=== PATIENT | female | born 1985 | race African-American/Black ===

== ENCOUNTER 2024-08-22 16:24 | Outpatient (CLI) | payer BC, SELFPAY ==
[2024-08-22] VITALS (14 sets, daily range): BP systolic 139–166; BP diastolic 82–107; PULSE 77–103; BMI 47.1
[2024-08-22 17:03] LABS: Basophils Percent Auto 0.2 % (0.2-1.2); Eosinophils Absolute Auto 0.1 K/mm3 (0-0.3); Eosinophils Percent Auto 1.6 % (0-4.4); Hematocrit 31.2 % (37.0-47.0); Hemoglobin 10.2 g/dL (12.0-15.0); Immature Granulocyte Absolute 0.02 K/mm3 (0.00-0.031); Immature Granulocyte Percent A 0.3 % (0-0.5); Lymphocytes Absolute Auto 1.52 K/mm3 (0.9-3.2); Lymphocytes Percent Auto 24.7 % (18.3-44.2); Mean Corpuscular HGB Conc 32.7 g/dl (32-36); Mean Corpuscular Hemoglobin 28.5 pg (26-34); Mean Corpuscular Volume 87.2 fl (80-100); Mean Platelet Volume 10.9 fl (7.4-10.4); Monocytes Absolute Auto 0.4 K/mm3 (0.1-0.6); Monocytes Percent Auto 6.5 % (2.6-8.5); Neutrophils Absolute Auto 4.1 K/mm3 (1.3-6.7); Neutrophils Percent Auto 66.7 % (45.5-73.1); Platelet Count Result 191 k/mm3 (150-375); Red Blood Count 3.58 M/mm3 (4.2-5.4); Red Cell Distribution Width 13.9 % (11.5-14.5); White Blood Count 6.2 K/mm3 (4.5-10.0)
--- NOTE | 2024-08-22 17:11 | PC.NURSE ---
Dr. Camargo returned call and informed of this pt's arrival. Informed her the pt's BP's were elevated at her [facility] visit this afternoon and was told to come see us. Pt was late in taking the first part of her Procardia XL dose today; she had 60 mg at 1300 instead of this am. Initial BP severe at 166/96 and repeat was 157/101. Blood work has been sent, but waiting for pt to void. Pt was given water and juice to drink. Denies headache, visual disturbance, epigastric/RUQ pain, but does have pitting edema in lower legs.
[2024-08-22 17:13] LABS: Alanine Aminotransferase 10 U/L (6-35); Albumin Level 3.4 g/dL (3.5-5.1); Alkaline Phosphatase 71 U/L (38-126); Anion Gap 7 mmol/L (4-12); Aspartate Amino Transferase 14 U/L (14-36); Bilirubin,Total 0.4 mg/dL (0.2-1.3); Blood Urea Nitrogen 8 mg/dL (7-17); Calcium 9.3 mg/dL (8.4-10.2); Carbon Dioxide 20 mmol/L (22-30); Chloride 107 mmol/L (98-107); Estimated Glomerular Filt Rate > 60; Glucose 84 mg/dL (65-110); Potassium 3.8 mmol/L (3.4-5.0); Sodium 134 mmol/L (137-145); Uric Acid 6.2 mg/dL (2.5-7.5)
--- NOTE | 2024-08-22 17:21 | PC.NURSE ---
Paged Dr. Camargo due to 2nd severe BP
--- NOTE | 2024-08-22 17:32 | PC.NURSE ---
Repaged Dr. Camargo due to severe BP's
--- NOTE | 2024-08-22 17:33 | PC.NURSE ---
Dr. Camargo returned page and informed of severe BP's. Order received to start severe hypertension protocol using PO Procardia. Informed of CBC and CMP results. Pt still hasn't voided.
[2024-08-22] MEDS: NIFEdipine 10 MG CAPSULE PO (17:40)
[2024-08-22 17:57] LABS: Add Urine Microscopic? YES; Appearance Urine Clear (Clear); Bacteria Urine None Seen /hpf; Bilirubin Urine Negative (Negative); Blood Urine Negative (Negative); Color Urine Yellow (Yellow); Glucose Urine UA Negative (Negative); Ketones Urine Trace mg/dL (Negative); Leukocyte Esterase Ur Negative LEU/UL (Negative); Nitrate Urine Negative (Negative); Non Pathogenic Casts 0-2; Protein Urine Trace mg/dL (Negative); RBC Urine 0-2 /hpf (0-2); Squamous Epithelial Cell Urine Few /hpf (Few); Urobilinogen Urine 0.2 mg/dL (<2.0); WBC Urine 0-5 /hpf (0-3); pH Urine 5.5 (5.0-9.0)
[2024-08-22 18:55] LABS: Total Protein Urine Random 22 mg/dL
--- NOTE | 2024-08-22 19:00 | PC.NURSE ---
RN called MD with update. MD made aware of latest blood pressures as well as results of UA. Orders received to administer pts nightime dose of Procardia now.
[2024-08-22] MEDS: NIFEdipine 30 MG TAB.ER.24 PO (19:08)
== END 2024-08-22 20:20 | disposition home or self-care (01) ==
LOC: ANHOBOP 16:32 → ANHOBPP 16:35
PROVIDERS: PCP Obstetrics & Gynecology; Visit Provider Obstetrics & Gynecology
DX: O13.9 Gestational [pregnancy-induced] hypertension without significant proteinuria, unspecified trimester (principal); Z3A.00 Weeks of gestation of pregnancy not specified
CPT/HCPCS: 36415; 59025; 80053; 81001; 82570; 84156; 84550; 85025; 99199; A9270

== ENCOUNTER 2024-08-26 16:48 | Outpatient (CLI) | payer BC, SELFPAY ==
[2024-08-26 17:16] VITALS: BP 159/108; PULSE 96
[2024-08-26 17:31] VITALS: BP 158/93; PULSE 97
--- NOTE | 2024-08-26 17:32 | PC.NURSE ---
Dr. Lott updated on NST and vital signs, orders received to send labs and continue monitoring blood pressures.
[2024-08-26 17:35] VITALS: BP 159/108; PULSE 96
[2024-08-26 17:40] LABS: Basophils Percent Auto 0.2 % (0.2-1.2); Eosinophils Absolute Auto 0.1 K/mm3 (0-0.3); Eosinophils Percent Auto 1.4 % (0-4.4); Hematocrit 36.1 % (37.0-47.0); Hemoglobin 11.4 g/dL (12.0-15.0); Immature Granulocyte Absolute 0.02 K/mm3 (0.00-0.031); Immature Granulocyte Percent A 0.3 % (0-0.5); Lymphocytes Absolute Auto 1.57 K/mm3 (0.9-3.2); Lymphocytes Percent Auto 23.9 % (18.3-44.2); Mean Corpuscular HGB Conc 31.6 g/dl (32-36); Mean Corpuscular Hemoglobin 27.5 pg (26-34); Mean Corpuscular Volume 87.2 fl (80-100); Mean Platelet Volume 11.4 fl (7.4-10.4); Monocytes Absolute Auto 0.3 K/mm3 (0.1-0.6); Monocytes Percent Auto 4.3 % (2.6-8.5); Neutrophils Absolute Auto 4.6 K/mm3 (1.3-6.7); Neutrophils Percent Auto 69.9 % (45.5-73.1); Platelet Count Result 218 k/mm3 (150-375); Red Blood Count 4.14 M/mm3 (4.2-5.4); White Blood Count 6.6 K/mm3 (4.5-10.0)
[2024-08-26 17:46] VITALS: BP 146/88; PULSE 93
[2024-08-26 17:51] LABS: Alanine Aminotransferase 11 U/L (6-35); Albumin Level 3.7 g/dL (3.5-5.1); Alkaline Phosphatase 81 U/L (38-126); Anion Gap 9 mmol/L (4-12); Aspartate Amino Transferase 14 U/L (14-36); Bilirubin,Total 0.6 mg/dL (0.2-1.3); Blood Urea Nitrogen 6 mg/dL (7-17); Calcium 9.1 mg/dL (8.4-10.2); Carbon Dioxide 19 mmol/L (22-30); Chloride 104 mmol/L (98-107); Estimated Glomerular Filt Rate > 60; Glucose 81 mg/dL (65-110); Potassium 3.7 mmol/L (3.4-5.0); Sodium 132 mmol/L (137-145); Uric Acid 6.2 mg/dL (2.5-7.5)
[2024-08-26 18:01] VITALS: BP 146/84; PULSE 95
[2024-08-26 18:01] LABS: Total Protein Urine Random 13 mg/dL; Ur Ttl Prot Creatinine Ratio 0.06 mg/mg (0-0.20)
[2024-08-26 18:06] LABS: Add Urine Microscopic? YES; Appearance Urine Clear (Clear); Bacteria Urine None Seen /hpf; Bilirubin Urine Negative (Negative); Blood Urine Negative (Negative); Color Urine Yellow (Yellow); Glucose Urine UA Negative (Negative); Ketones Urine 3+ mg/dL (Negative); Leukocyte Esterase Ur Negative LEU/UL (Negative); Nitrate Urine Negative (Negative); Non Pathogenic Casts 0-2; Protein Urine Trace mg/dL (Negative); RBC Urine 0-2 /hpf (0-2); Specific Grav Ur 1.018 (1.001-1.035); Squamous Epithelial Cell Urine Occasional /hpf (Few); Urobilinogen Urine 0.2 mg/dL (<2.0); WBC Urine 0-5 /hpf (0-3); pH Urine 5.5 (5.0-9.0)
--- NOTE | 2024-08-26 18:12 | PC.NURSE ---
Dr. Lott updated on lab results and vital signs, okay to discharge
== END 2024-08-26 18:15 | disposition home or self-care (01) ==
LOC: ANHOBOP 16:52 → ANHOBPP 16:54
PROVIDERS: PCP Obstetrics & Gynecology; Visit Provider Obstetrics & Gynecology
DX: O13.9 Gestational [pregnancy-induced] hypertension without significant proteinuria, unspecified trimester (principal); Z3A.00 Weeks of gestation of pregnancy not specified
CPT/HCPCS: 36415; 80053; 81001; 82570; 84156; 84550; 85025; 99199

== ENCOUNTER 2024-08-29 15:45 | Outpatient (RCR) | payer BC, SELFPAY ==
[2024-08-13 12:04] VITALS: BP 139/90; PULSE 100
--- NOTE | ~2024-08-29 | US_ITS ---
EXAMINATION: US OB limited DATE: 08/13/2024 11:14 INDICATION: Decelerations. Third trimester. TECHNIQUE: Real-time ultrasound of the pelvis was performed. COMPARISON: None. FINDINGS: There is a single fetus in vertex presentation. The placenta is fundal. heart rate is 141 beat s per minute (bpm). The amniotic fluid index is 13.9 cm cm, which is normal. IMPRESSION: 1. Single living fetus in vertex presentation. Reviewed, dictated and finalized at location A.
== END 2024-10-02 17:49 | disposition home or self-care (01) ==
LOC: ANHOBOP 15:45
PROVIDERS: PCP Obstetrics & Gynecology; Visit Provider Obstetrics & Gynecology
DX: O36.8330 Maternal care for abnormalities of the fetal heart rate or rhythm, third trimester, not applicable or unspecified (principal)
CPT/HCPCS: 59025; 76815

== ENCOUNTER 2024-08-29 15:45 | Observation (INO) | payer BC, SELFPAY ==
[2024-08-29] VITALS (7 sets, daily range): BP systolic 145–160; BP diastolic 89–94; PULSE 86–99; RESP 18; TEMP 36.6; BMI 46.5
--- NOTE | ~2024-08-29 | US_ITS ---
EXAMINATION: US OB limited DATE: 08/29/2024 19:33 INDICATION: Chronic hypertension during . Assess amniotic fluid index. TECHNIQUE: Real-time ultrasound of the pelvis was performed. The interpreting radiologist was not pre sent for the study. COMPARISON: None. FINDINGS: There is a single living fetus in transverse lie with head to maternal left. The placenta is anterio r and not low-lying. heart rate is 123 beats per minute (bpm). Oligohydramnios with amniotic fl uid index of 8.2 cm, which is slightly below the 2 standard deviation range (5th%-95%: 8.3-24.5 cm a t 33 weeks estimated gestational age). There is a normal cervical length of approximately 6.3 cm. The region of the internal cervical os is partially obscured but there does not appear to be funneling. There is however dilation of mixed anechoic and hypoechoic endocervical canal measuring 1.4 cm which could represent fluid, blood or mucus. IMPRESSION: 1. Single living fetus in transverse lie with heart rate of 123 bpm. 2. Oligohydramnios with mildly decreased amniotic fluid index of 8.2 cm. 3. Normal cervical length both without evident funneling but with suggestion of dilation of the endoc ervical canal up to 1.3 cm diameter which could be filled with fluid, bladder mucous. Could consider repeat ultrasound with endocervical probe for more definitive assessment. Reviewed, dictated and finalized at location A. IMPRESSION: 1. Single living fetus in transverse lie with heart rate of 123 bpm. 2. Oligohydramnios with mildly decreased amniotic fluid index of 8.2 cm. 3. Normal cervical length both without evident funneling but with suggestion of dilation of the endocervical canal up to 1.3 cm diameter which could be filled with fluid, bladder mucous. Could consider repeat ultrasound with endocervical probe for more definitive assessment.
[2024-08-29] MEDS: NIFEdipine 10 MG CAPSULE 20 MG PO (16:33)
[2024-08-29 17:00] LABS: Basophils Percent Auto 0.1 % (0.2-1.2); Eosinophils Absolute Auto 0.1 K/mm3 (0-0.3); Eosinophils Percent Auto 1.4 % (0-4.4); Hematocrit 34.4 % (37.0-47.0); Hemoglobin 11.5 g/dL (12.0-15.0); Immature Granulocyte Absolute 0.02 K/mm3 (0.00-0.031); Immature Granulocyte Percent A 0.3 % (0-0.5); Lymphocytes Absolute Auto 1.58 K/mm3 (0.9-3.2); Lymphocytes Percent Auto 22.7 % (18.3-44.2); Mean Corpuscular HGB Conc 33.4 g/dl (32-36); Mean Corpuscular Volume 86.6 fl (80-100); Mean Platelet Volume 11.1 fl (7.4-10.4); Monocytes Absolute Auto 0.5 K/mm3 (0.1-0.6); Monocytes Percent Auto 6.5 % (2.6-8.5); Neutrophils Absolute Auto 4.8 K/mm3 (1.3-6.7); Platelet Count Result 215 k/mm3 (150-375); Red Blood Count 3.97 M/mm3 (4.2-5.4)
[2024-08-29 17:10] LABS: Alanine Aminotransferase 11 U/L (6-35); Albumin Level 3.9 g/dL (3.5-5.1); Alkaline Phosphatase 79 U/L (38-126); Anion Gap 9 mmol/L (4-12); Aspartate Amino Transferase 16 U/L (14-36); Bilirubin,Total 0.4 mg/dL (0.2-1.3); Blood Urea Nitrogen 7 mg/dL (7-17); Calcium 9.3 mg/dL (8.4-10.2); Carbon Dioxide 19 mmol/L (22-30); Chloride 106 mmol/L (98-107); Estimated Glomerular Filt Rate > 60; Glucose 82 mg/dL (65-110); Potassium 3.7 mmol/L (3.4-5.0); Sodium 134 mmol/L (137-145); Uric Acid 6.1 mg/dL (2.5-7.5)
--- NOTE | 2024-08-29 17:33 | OBADM ---
This patient, Rayna Chew, admitted to the OB room Labor/Delivery/Recovery 119 for observation. Patient/family oriented to hospital policies and general routines including ID bracelet, bed and alarms, visiting hours, pain management, procedures, bathroom and other care routines, personal items, smoking policy, room service/diet, and visiting hours. Patient/Family are encouraged to report perceived risks to care and to ask questions if they do not understand what they are told or what they should do.
--- NOTE | 2024-08-29 17:35 | PC.NURSE ---
9320- Dr. Camargo updated on patient's NST and 2 severe blood pressures in 15 minutes. Orders received to give 20 Procardia short acting PO and draw PIH labs.
[2024-08-29 17:39] LABS: Add Urine Microscopic? NO; Appearance Urine Clear (Clear); Bilirubin Urine Negative (Negative); Blood Urine Negative (Negative); Color Urine Yellow (Yellow); Glucose Urine UA Negative (Negative); Ketones Urine 1+ mg/dL (Negative); Leukocyte Esterase Ur Negative LEU/UL (Negative); Nitrate Urine Negative (Negative); Protein Urine Negative (Negative); Specific Grav Ur 1.013 (1.001-1.035); Urobilinogen Urine 0.2 mg/dL (<2.0)
[2024-08-29 17:45] LABS: Creatinine Urine 117.5 mg/dL; Total Protein Urine Random 14 mg/dL; Ur Ttl Prot Creatinine Ratio 0.12 mg/mg (0-0.20)
[2024-08-29] MEDS: BETAMETHASONE SOD PHOS/ACETATE 30 MG/5 ML VIAL 12 MG IM (19:34)
--- NOTE | 2024-09-11 10:29 | PM.OBTRLD ---
OB - Triage/Final Diagnosis Visit Information Comments/Additional reasons for admission: I have assessed the risk for this patient, Rayna Chew, and determined that she would benefit from observation care. Evaluation Laboratory results: Laboratory Tests 08/29/24 08/29/24 16:54 16:55 WBC 7.0 RBC 3.97 L Hgb 11.5 L Hct 34.4 L MCV 86.6 MCH 29.0 D MCHC 33.4 RDW 14.0 Plt Count 215 MPV 11.1 H Immature Gran % (Auto) 0.3 Neut % (Auto) 69.0 Lymph % (Auto) 22.7 Bartholomew % (Auto) 6.5 Eos % (Auto) 1.4 Baso % (Auto) 0.1 L Lymph # (Auto) 1.58 Bartholomew # (Auto) 0.5 Eos # (Auto) 0.1 Baso # (Auto) 0.0 Abs Immat Gran (auto) 0.02 Absolute Neuts (auto) 4.8 Absolute Nucleated RBC 0.000 Nucleated RBC % 0.0 Sodium 134 L Potassium 3.7 Chloride 106 Carbon Dioxide 19 L Anion Gap 9 BUN 7 Creatinine 0.70 Estim Creat Clear Calc Not Reportable Estimated GFR > 60 Glucose 82 Uric Acid 6.1 Calcium 9.3 Total Bilirubin 0.4 AST 16 ALT 11 Alkaline Phosphatase 79 Total Protein 7.0 Albumin 3.9 Urine Color Yellow Urine Appearance Clear Urine pH 6.0 Ur Specific [place] 1.013 Urine Protein Negative Urine Glucose (UA) Negative Urine Ketones 1+ H Ur Blood (Man) Negative Urine Nitrate Negative Urine Bilirubin Negative Urine Urobilinogen 0.2 Leukocyte Esterase Rfl Negative U Random Total Protein 14 Urine Creatinine 117.5 Protein/Creat Ratio 2 0.12 Final Diagnosis (1) Hypertension affecting in third trimester: Code(s): O16.3 - Unspecified maternal hypertension, third trimester Status: Acute
== END 2024-08-29 19:59 | disposition home or self-care (01) ==
PROVIDERS: Admitting Provider Obstetrics & Gynecology; Visit Provider Obstetrics & Gynecology
DX: O16.3 Unspecified maternal hypertension, third trimester (principal); Z3A.33 33 weeks gestation of pregnancy
CPT/HCPCS: 36415; 59025; 76815; 80053; 81003; 82570; 84156; 84550; 85025; 96372; A9270; G0378; G0379; J0702

== ENCOUNTER 2024-08-30 19:15 | Outpatient (CLI) | payer BC, SELFPAY ==
[2024-08-30] MEDS: BETAMETHASONE SOD PHOS/ACETATE 30 MG/5 ML VIAL 12 MG IM (19:36)
== END 2024-08-30 19:40 | disposition home or self-care (01) ==
LOC: ANHOBOP 19:29
PROVIDERS: Visit Provider Obstetrics & Gynecology
DX: Z34.90 Encounter for supervision of normal pregnancy, unspecified, unspecified trimester (principal); Z3A.00 Weeks of gestation of pregnancy not specified
CPT/HCPCS: 96372; J0702

== ENCOUNTER 2024-09-05 12:27 | Outpatient (CLI) | payer BC, SELFPAY ==
[2024-09-05] VITALS (34 sets, daily range): BP systolic 149–163; BP diastolic 90–107; PULSE 83–103; O2SAT 100; BMI 46.3
--- NOTE | ~2024-09-05 | US_ITS ---
EXAMINATION: US OB limited w BPP DATE: 09/05/2024 15:12 INDICATION: Chronic hypertension. Third trimester. TECHNIQUE: Real-time pelvic ultrasound was performed. COMPARISON: Ultrasound 08/29/2024 FINDINGS: There is a single living fetus in variable presentation. The placenta is fundal. heart rate is 140 beats per minute (bpm). The cervical length is 5.6 cm on transabdominal images, which is normal. Biophysical profile performed by the technologist: breathing (30 sec sustained breathing in 30 minutes): 2 out of 2 movement (3 gross body movements in 30 minutes): 2 out of 2 tone (one episode of hadkmur-dsephezrv-dhpwwrf limb movement): 2 out of 2 Amniotic fluid pocket (2 cm): 2 out of 2 Total score: 8 out of 8 IMPRESSION: 1. Single living fetus in variable presentation. 2. Biophysical profile 8 out of 8. Reviewed, dictated and finalized at location B.
[2024-09-05 13:28] LABS: Eosinophils Absolute Auto 0.1 K/mm3 (0-0.3); Eosinophils Percent Auto 0.7 % (0-4.4); Hematocrit 32.7 % (37.0-47.0); Hemoglobin 10.9 g/dL (12.0-15.0); Immature Granulocyte Absolute 0.02 K/mm3 (0.00-0.031); Immature Granulocyte Percent A 0.2 % (0-0.5); Lymphocytes Absolute Auto 1.62 K/mm3 (0.9-3.2); Lymphocytes Percent Auto 19.5 % (18.3-44.2); Mean Corpuscular HGB Conc 33.3 g/dl (32-36); Mean Corpuscular Hemoglobin 28.8 pg (26-34); Mean Corpuscular Volume 86.3 fl (80-100); Mean Platelet Volume 11.3 fl (7.4-10.4); Monocytes Absolute Auto 0.5 K/mm3 (0.1-0.6); Monocytes Percent Auto 5.8 % (2.6-8.5); Neutrophils Absolute Auto 6.1 K/mm3 (1.3-6.7); Neutrophils Percent Auto 73.8 % (45.5-73.1); Platelet Count Result 216 k/mm3 (150-375); Red Blood Count 3.79 M/mm3 (4.2-5.4); Red Cell Distribution Width 14.3 % (11.5-14.5); White Blood Count 8.3 K/mm3 (4.5-10.0)
[2024-09-05 13:34] LABS: Add Urine Microscopic? YES; Appearance Urine Cloudy (Clear); Bacteria Urine Rare /hpf; Bilirubin Urine Negative (Negative); Blood Urine Negative (Negative); Color Urine Yellow (Yellow); Glucose Urine UA Negative (Negative); Ketones Urine Trace mg/dL (Negative); Leukocyte Esterase Ur Negative LEU/UL (Negative); Nitrate Urine Negative (Negative); Non Pathogenic Casts 0-2; Protein Urine 1+ mg/dL (Negative); RBC Urine 0-2 /hpf (0-2); Specific Grav Ur 1.027 (1.001-1.035); Squamous Epithelial Cell Urine Moderate /hpf (Few); WBC Urine 0-5 /hpf (0-3); pH Urine 5.5 (5.0-9.0)
[2024-09-05 13:36] LABS: Creatinine Urine 341.7 mg/dL; Total Protein Urine Random 9 mg/dL; Ur Ttl Prot Creatinine Ratio 0.03 mg/mg (0-0.20)
[2024-09-05 13:38] LABS: Alanine Aminotransferase 9 U/L (6-35); Albumin Level 3.6 g/dL (3.5-5.1); Alkaline Phosphatase 86 U/L (38-126); Anion Gap 9 mmol/L (4-12); Aspartate Amino Transferase 13 U/L (14-36); Bilirubin,Total 0.5 mg/dL (0.2-1.3); Blood Urea Nitrogen 8 mg/dL (7-17); Calcium 9.2 mg/dL (8.4-10.2); Carbon Dioxide 21 mmol/L (22-30); Chloride 105 mmol/L (98-107); Estimated Glomerular Filt Rate > 60; Glucose 82 mg/dL (65-110); Potassium 3.8 mmol/L (3.4-5.0); Sodium 135 mmol/L (137-145); Uric Acid 6.1 mg/dL (2.5-7.5)
--- NOTE | 2024-09-05 15:51 | PC.NURSE ---
Dr. Camargo returned call and informed pt has now had 2 severe BP's that were 30 mins apart. Gave range of BP's. Informed NST was reactive, BPP 8/8 and TOBIN was 16.2 cm. Informed of lab results. Orders received for PO hydralazine.
[2024-09-05] MEDS: hydrALAZINE 10 MG TABLET PO (16:06)
--- NOTE | 2024-09-05 17:18 | PC.NURSE ---
Dr. Camargo on unit and reviewed BP's since Hydralazine was given. Pt has had no adverse side effects. Order received for discharge. has sent new prescription for Hydralazine 10 mg po BID to [facility] in [place].
--- NOTE | 2024-09-05 17:26 | PC.NURSE ---
Pt sent home with supplies for 24 hr urine that started at 1245 today. Pt acknowledges to sampler pickup RX tonight and start in am. Pt was instructed that if she has any problems picking up her prescription tonight to call back and I'll notify Dr. Camargo. Pt verbalizes understanding.
== END 2024-09-05 17:26 | disposition home or self-care (01) ==
LOC: ANHOBOP 12:35 → ANHOBPP 12:37
PROVIDERS: Visit Provider Obstetrics & Gynecology
DX: I10 Essential (primary) hypertension (principal)
CPT/HCPCS: 36415; 59025; 76815; 76819; 80053; 81001; 82570; 84156; 84550; 85025; 99199; A9270

== ENCOUNTER 2024-09-06 18:11 | Outpatient (NON) | payer BC, SELFPAY ==
[2024-09-06 23:26] LABS: Collection Time Urine 24 HOURS
[2024-09-06 23:27] LABS: Total Volume 24 Hour Urine 1750 ml
[2024-09-06 23:36] LABS: Total Protein Urine 24 Hr 192 mg/24hr (28-141); Total Protein Urine Random 11 mg/dL
[2024-09-06 23:48] LABS: Patient Weight 269 Lbs
== END 2024-09-06 18:12 | disposition home or self-care (01) ==
PROVIDERS: Visit Provider Obstetrics & Gynecology
DX: O13.9 Gestational [pregnancy-induced] hypertension without significant proteinuria, unspecified trimester (principal); Z3A.00 Weeks of gestation of pregnancy not specified
CPT/HCPCS: 81050; 82575; 84156

== ENCOUNTER 2024-09-12 11:45 | Inpatient (IN) | payer BC, SELFPAY ==
[2024-09-12] VITALS (57 sets, daily range): BP systolic 123–169; BP diastolic 69–105; PULSE 67–135; RESP 12–18; TEMP 36.6–36.8; O2SAT 98–100; BMI 46.3
[2024-09-12 10:49] LABS: Basophils Percent Auto 0.2 % (0.2-1.2); Eosinophils Absolute Auto 0.1 K/mm3 (0-0.3); Eosinophils Percent Auto 1.1 % (0-4.4); Hematocrit 33.3 % (37.0-47.0); Hemoglobin 10.9 g/dL (12.0-15.0); Immature Granulocyte Absolute 0.01 K/mm3 (0.00-0.031); Immature Granulocyte Percent A 0.2 % (0-0.5); Lymphocytes Absolute Auto 1.18 K/mm3 (0.9-3.2); Lymphocytes Percent Auto 19.1 % (18.3-44.2); Mean Corpuscular HGB Conc 32.7 g/dl (32-36); Mean Corpuscular Hemoglobin 28.6 pg (26-34); Mean Corpuscular Volume 87.4 fl (80-100); Mean Platelet Volume 11.2 fl (7.4-10.4); Monocytes Absolute Auto 0.4 K/mm3 (0.1-0.6); Monocytes Percent Auto 5.8 % (2.6-8.5); Neutrophils Absolute Auto 4.6 K/mm3 (1.3-6.7); Neutrophils Percent Auto 73.6 % (45.5-73.1); Platelet Count Result 179 k/mm3 (150-375); Red Blood Count 3.81 M/mm3 (4.2-5.4); Red Cell Distribution Width 14.1 % (11.5-14.5); White Blood Count 6.2 K/mm3 (4.5-10.0)
[2024-09-12 10:59] LABS: Add Urine Microscopic? YES; Appearance Urine Cloudy (Clear); Bacteria Urine None Seen /hpf; Bilirubin Urine Negative (Negative); Blood Urine Negative (Negative); Color Urine Dark Yellow (Yellow); Glucose Urine UA Negative (Negative); Hyaline Casts Urine Present /lpf; Ketones Urine Trace mg/dL (Negative); Leukocyte Esterase Ur Trace LEU/UL (Negative); Mucus Urine Present /lpf; Need Manual Microscopic Reviewed; Nitrate Urine Negative (Negative); Protein Urine 1+ mg/dL (Negative); RBC Urine 0-2 /hpf (0-2); Squamous Epithelial Cell Urine Moderate /hpf (Few); WBC Urine 0-5 /hpf (0-3); pH Urine 5.5 (5.0-9.0)
[2024-09-12 11:05] LABS: Alanine Aminotransferase 11 U/L (6-35); Albumin Level 3.5 g/dL (3.5-5.1); Alkaline Phosphatase 87 U/L (38-126); Anion Gap 3 mmol/L (4-12); Aspartate Amino Transferase 14 U/L (14-36); Bilirubin,Total 0.5 mg/dL (0.2-1.3); Blood Urea Nitrogen 6 mg/dL (7-17); Calcium 9.1 mg/dL (8.4-10.2); Carbon Dioxide 24 mmol/L (22-30); Chloride 105 mmol/L (98-107); Estimated Glomerular Filt Rate > 60; Glucose 94 mg/dL (65-110); Potassium 3.8 mmol/L (3.4-5.0); Sodium 132 mmol/L (137-145); Uric Acid 6.6 mg/dL (2.5-7.5)
[2024-09-12 11:06] LABS: Total Protein Urine Random 23 mg/dL
[2024-09-12 11:45] LABS: Creatinine Urine 370.9 mg/dL; Ur Ttl Prot Creatinine Ratio 0.06 mg/mg (0-0.20)
[2024-09-12] MEDS: NIFEdipine 10 MG CAPSULE PO ×2 (12:01→14:10)
--- NOTE | 2024-09-12 12:54 | WPDANESEPP ---
Anes - Eval Pre Procedure Procedure: repeat c section Date/Time: 09/12/24 12:54 Surgeon: Mary Jo Preop Diagnosis: PIH Pre Op Diagnosis: Elevated Blood Pressure Patient Data Age: 38 Gender: F Height: 1.63 m Weight: 122.5 kg Last Vital Signs Pulse 95 09/12/24 12:46 BP 162/102 H 09/12/24 12:46 Allergies Allergy/AdvReac Type Severity Reaction Status Date / Time labetalol Allergy Headache Verified 09/12/24 09:44 Home Medications Medication Instructions Recorded Confirmed Type aspirin 81 mg chewable tablet 81 mg PO DAILY 04/30/24 09/12/24 History (Children's Aspirin) nifedipine 60 mg tablet,extended 60 mg PO BID 04/30/24 09/12/24 History release 24 hr (Procardia XL) ferrous sulfate 325 mg (65 mg 325 mg PO DAILY 08/22/24 09/12/24 History iron) tablet vit no.95-ferrous 1 tablet PO DAILY 08/22/24 09/12/24 History fumarate 28 mg-folic acid 800 mcg tablet () levothyroxine 75 mcg capsule 75 mcg PO DAILY #30 caps 08/28/24 09/12/24 Rx hydralazine 10 mg tablet 10 mg PO .qam and q pm #60 tabs 09/05/24 09/12/24 Rx Laboratory Tests 09/12/24 09/12/24 10:44 12:42 WBC 6.2 K/mm3 (4.5-10.0) RBC 3.81 L M/mm3 (4.2-5.4) Hgb 10.9 L g/dL (12.0-15.0) Hct 33.3 L % (37.0-47.0) MCV 87.4 fl (80-100) MCH 28.6 pg (26-34) MCHC 32.7 g/dl (32-36) RDW 14.1 % (11.5-14.5) Plt Count 179 k/mm3 (150-375) MPV 11.2 H fl (7.4-10.4) Immature Gran % (Auto) 0.2 % (0-0.5) Neut % (Auto) 73.6 H % (45.5-73.1) Lymph % (Auto) 19.1 % (18.3-44.2) [place] % (Auto) 5.8 % (2.6-8.5) Eos % (Auto) 1.1 % (0-4.4) Baso % (Auto) 0.2 % (0.2-1.2) Lymph # (Auto) 1.18 K/mm3 (0.9-3.2) [place] # (Auto) 0.4 K/mm3 (0.1-0.6) Eos # (Auto) 0.1 K/mm3 (0-0.3) Baso # (Auto) 0.0 K/mm3 (0.0-0.1) Abs Immat Gran (auto) 0.01 K/mm3 (0.00-0.031) Absolute Neuts (auto) 4.6 K/mm3 (1.3-6.7) Absolute Nucleated RBC 0.000 K/mm3 (0.0-0.012) Nucleated RBC % 0.0 % (0.0-0.2) Sodium 132 L mmol/L (137-145) Potassium 3.8 mmol/L (3.4-5.0) Chloride 105 mmol/L (98-107) Carbon Dioxide 24 mmol/L (22-30) Anion Gap 3 L mmol/L (4-12) BUN 6 L mg/dL (7-17) Creatinine 0.70 mg/dL (0.7-1.0) Estim Creat Clear Calc Not Reportable Estimated GFR > 60 (59 - ) Glucose 94 mg/dL (65-110) Uric Acid 6.6 mg/dL (2.5-7.5) Calcium 9.1 mg/dL (8.4-10.2) Total Bilirubin 0.5 mg/dL (0.2-1.3) AST 14 U/L (14-36) ALT 11 U/L (6-35) Alkaline Phosphatase 87 U/L (38-126) Total Protein 7.0 g/dL (6.3-8.2) Albumin 3.5 g/dL (3.5-5.1) Urine Color Dark yellow (Yellow) Urine Appearance Cloudy H (Clear) Urine pH 5.5 (5.0-9.0) Ur Specific [place] 1.020 (1.001-1.035) Urine Protein 1+ H mg/dL (Negative) Urine Glucose (UA) Negative mg/dL (Negative) Urine Ketones Trace H mg/dL (Negative) Ur Blood (Man) Negative (Negative) Urine Nitrate Negative (Negative) Urine Bilirubin Negative (Negative) Urine Urobilinogen 1.0 mg/dL (<2.0) Add Ur Microanalysis Reviewed Leukocyte Esterase Rfl Trace H JESICA/UL (Negative) Urine RBC 0-2 /hpf (0-2) Urine WBC 0-5 /hpf (0-3) Ur Squamous Epith Cells Moderate /hpf (Few) Urine Bacteria None seen /hpf Urine Casts 6-10 Hyaline Casts Present /lpf (None) Urine Mucus Present /lpf U Random Total Protein 23 mg/dL Urine Creatinine 370.9 mg/dL Protein/Creat Ratio 2 Pending RPR Pending HIV 1&2 Ab/P24 Ag 4thGn Pending Patient hx anesthesia problems: none Family hx anesthesia problems: none Results Review: All pre-operative results and documents have been reviewed as part of the pre-operative evaluation. [facility] Past Medical History Medical History Anemia delivery delivered Herpes Hypertension Hypertension affecting in third trimester Hypothyroidism Morbid obesity Proteinuria Surgical History Surgical History (Updated 09/12/24 @ 13:02 by Burton Parada Jr., CRNA) Delivery by section Family History Family History Mother Hypertension Grandparent Hypertension Cancer Social History Social History Smoking status: Never smoker Alcohol intake: never Substance use: never Do You Feel Safe in your Home?: Yes Lack of Transportation: No Lack of Food: Never True Current Housing: I Have Housing Concerned About Future Housing: No Difficulty Paying Gas/Electric Bills: No Difficulty Paying for Meds: No Currently Unemployed: No Education: Associate Degree Difficulty w/ Childcare or Family Care: No Gender identity (if verbalized by the patient): Female Spiritual care concerns: No Exam Day of Procedure 09/12/24 12:54 Patient weight: morbidly obese Heart: regular rate and rhythm Lungs: clear to auscultation Airway: Mallampati scale class II Neurological: alert and oriented
[2024-09-12] MEDS: ACETAMINOPHEN 500 MG TABLET 1000 MG PO (13:03)
[2024-09-12] MEDS: LACTATED RINGERS 1,000 ML 125 ML IV CONT (13:03)
--- NOTE | 2024-09-12 13:12 | LDADM ---
This patient, Rayna Chew, was admitted to OB Post 115 on 09/12/24 at 11:45. Plans for section, pain management and were discussed with patient. Patient/family oriented to hospital policies and general routines including ID bracelet, bed and alarms, visiting hours, pain management, procedures, bathroom and other care routines, personal items, smoking policy, room service/diet and guest tray routines, security routines, and visiting hours. Patient/Family are encouraged to report perceived risks to care and to ask questions if they do not understand what they are told or what they should do. See OBIX for further documentation.
[2024-09-12 13:24] LABS: Rapid Plasma Reagin Non-Reactive (NonReactive)
[2024-09-12 13:42] LABS: HIV 1/2 Ab P24 Ag Result Negative (Negative)
--- NOTE | 2024-09-12 14:29 | P.PNAN_ITS ---
Anes - Eval Final PreProcedure Day of Procedure 09/12/24 14:29 Patient weight: morbidly obese Heart: regular rate and rhythm Lungs: clear to auscultation Airway: Mallampati scale class II Neurological: alert and oriented Last oral intake: >/= 8 hours ASA classification: III Emergent: no Anesthetic plan: proceed Anesthesia type and monitoring: regional spinal and standard monitoring Results Review: All pre-operative results and documents have been reviewed as part of the pre- operative evaluation. Informed Consent: The patient's anesthetic plan and its attendant risks and benefits were discusse d with the patient/family/POA. Questions were solicited and answers provided to the satisfaction of the patient/family/POA.
--- NOTE | 2024-09-12 14:36 | PM.IMHP ---
H&P: HPI History of Present Illness Date/Time: 09/12/24 14:36 Chief Complaint: Severe range blood pressures Narrative: patient is a 38-year-old at 35 and 4 with an EDC of 10/13/2024. She presented to the office for routine OB visit and blood pressures were 164/92. She denies any headache scotomata or right upper quadrant pain. She was recommended to go to be evaluated at Labor and delivery on Labor and delivery her blood pressures persisted in severe range she was given 1 dose of Procardia which did not resolve it. She was recommended for delivery due to the persistence of severe range blood pressures despite medical management. She has been informed of risk of continuing to include demise seizures stroke severe preeclampsia. She agrees to a section. She was prescribed additional antihypertensive medication of hydralazine to her Procardia 60 mg twice a day. She reports she has been taking it. Her blood pressures continue to be episodically in the severe range she is allergic to labetalol therefore cannot at that she was recommended for delivery today due to persistent severe range blood pressures. She has been given betamethasone over a week ago due to concern that she would deliver soon. Her course also significant for prior x2 and she has opted for repeat for delivery. course also significant for Chronic hypertension, advanced maternal age, spur at 17 weeks. She also had anemia of it did receive an iron transfusion during the . She has a history Also has a history of SM and 1 copy. Also has history of hypothyroidism. She has had serial testing. She has had weekly PIH labs which have been normal her 24 hour urine was within normal range. Review of Systems Review of Systems: All systems reviewed & are unremarkable except as noted in HPI and below Constitutional: Constitutional: Reports no additional constitutional complaints and Denies headache(s) Eyes: Eyes: Denies spots in vision ENT: Reports system reviewed and no additional complaints, except as documented and Denies headache(s) Cardiovascular: Cardiovascular: Denies chest pain and Denies dyspnea Respiratory: Respiratory: Denies dyspnea Gastrointestinal: Gastrointestinal: Reports no additional gastrointestinal complaints Genitourinary: Genitourinary: Reports amenorrhea Musculoskeletal: Musculoskeletal: Reports no additional musculoskeletal complaints Integumentary/Breasts: Skin/Breast: Denies breast mass and Denies rash Neurologic: Denies headache(s) Psychiatric: Psychiatric: Reports no additional psychiatric complaints PMFSH Past Medical History Medical History Anemia delivery delivered Herpes Hypertension Hypertension affecting in third trimester Hypothyroidism Morbid obesity Proteinuria Surgical History Surgical History (Updated 09/12/24 @ 14:43 by Jamison Camargo MD) Delivery by section Family History Family History Mother Hypertension Grandparent Hypertension Cancer Social History Social History Smoking status: Never smoker Alcohol intake: never Substance use: never Do You Feel Safe in your Home?: Yes Lack of Transportation: No Lack of Food: Never True Current Housing: I Have Housing Concerned About Future Housing: No Difficulty Paying Gas/Electric Bills: No Difficulty Paying for Meds: No Currently Unemployed: No Education: Associate Degree Difficulty w/ Childcare or Family Care: No Gender identity (if verbalized by the patient): Female Spiritual care concerns: No Meds Home Medications and Allergies Home Medications Medication Instructions Recorded Confirmed Type aspirin 81 mg chewable tablet 81 mg PO DAILY 04/30/24 09/12/24 History (Children's Aspirin) nifedipine 60 mg tablet,extended 60 mg PO BID 04/30/24 09/12/24 History release 24 hr (Procardia XL) ferrous sulfate 325 mg (65 mg 325 mg PO DAILY 08/22/24 09/12/24 History iron) tablet vit no.95-ferrous 1 tablet PO DAILY 08/22/24 09/12/24 History fumarate 28 mg-folic acid 800 mcg tablet () levothyroxine 75 mcg capsule 75 mcg PO DAILY #30 caps 08/28/24 09/12/24 Rx hydralazine 10 mg tablet 10 mg PO .qam and q pm #60 tabs 09/05/24 09/12/24 Rx Allergies Allergy/AdvReac Type Severity Reaction Status Date / Time labetalol Allergy Headache Verified 09/12/24 09:44 Vital Signs Vital Signs - 24 hr 09/12/24 11:01 09/12/24 11:16 09/12/24 11:31 Pulse Rate 87 84 87 Blood Pressure 160/100 H 155/98 H 165/98 H Oxygen Delivery 09/12/24 11:46 09/12/24 12:43 09/12/24 12:46 Pulse Rate 85 97 95 Blood Pressure 160/99 H 153/102 H 162/102 H Oxygen Delivery 09/12/24 13:01 09/12/24 13:31 09/12/24 13:50 Pulse Rate 109 H 113 H 107 H Blood Pressure 163/99 H 160/93 H 167/96 H Oxygen Delivery 09/12/24 14:01 09/12/24 14:16 09/12/24 13:09 Pulse Rate 105 H 107 H Blood Pressure 161/93 H 169/95 H Oxygen Delivery Room Air Exam Const: General: no acute distress Eyes: General: appearance normal, both eyes and all related structures Resp: Effort & Inspection: normal respiratory effort Cardio: Rate: regular rate GI: Other: Gravid no fundal tenderness no right upper quadrant pain Skin: General skin exam: no rashes or lesions noted Neuro: Cognition (Neuro): normal cognition Extrem: General: normal to inspection Psych: Mental Status: mental status grossly normal H&P: Results Labs Labs: Short CBC 09/12/24 Range/Units 10:44 WBC 6.2 (4.5-10.0) K/mm3 Hgb 10.9 L (12.0-15.0) g/dL Hct 33.3 L (37.0-47.0) % Plt Count 179 (150-375) k/mm3 BMP 09/12/24 10:44 Sodium 132 L Potassium 3.8 Chloride 105 Carbon Dioxide 24 BUN 6 L Creatinine 0.70 Glucose 94 Calcium 9.1 Liver Function 09/12/24 Range/Units 10:44 Total Bilirubin 0.5 (0.2-1.3) mg/dL AST 14 (14-36) U/L ALT 11 (6-35) U/L Alkaline Phosphatase 87 (38-126) U/L Albumin 3.5 (3.5-5.1) g/dL Urine 09/12/24 Range/Units 10:44 Urine Color Dark yellow (Yellow) Urine Appearance Cloudy H (Clear) Urine pH 5.5 (5.0-9.0) Ur Specific [place] 1.020 (1.001-1.035) Urine Protein 1+ H (Negative) mg/dL Urine Glucose (UA) Negative (Negative) mg/dL Assessment and Plan Assessment and plan (1) Hypertension affecting in third trimester: Code(s): O16.3 - Unspecified maternal hypertension, third trimester Status: Acute Assessment and Plan: Severe range blood pressures not responding to outpatient management recommend delivery. Proceed with repeat section she has been informed of risk of prematurity and risk of severe preeclampsia not responding to medication. (2) Hypothyroidism: Code(s): E03.9 - Hypothyroidism, unspecified Status: Acute (3) Chronic hypertension: Code(s): I10 - Essential (primary) hypertension Status: Acute (4) Previous section: Code(s): Z98.891 - History of uterine scar from previous surgery Status: Acute
[2024-09-12] MEDS: ONDANSETRON INJ 4 MG/2 ML VIAL IV PUSH (14:39)
[2024-09-12] MEDS: FAMOTIDINE 20 MG/2 ML VIAL IV PUSH (14:39)
[2024-09-12] MEDS: ceFAZolin 3 GM/D5W 100 ML 100 ML IVPB (15:03)
--- NOTE | 2024-09-12 16:46 | W.PM.OBCSD ---
OB - Delivery Note Procedure Delivery date: 09/12/24 Pre-op diagnosis: Breech Presentation, Chronic Hypertension (severe range blood pressures) and Previous Delivery Post-op Diagnosis: Same Delivery monitor: External FHT Prior to decision for section, ACOG/SM labor guidelines were considered and discussed with the patient and staff. Decision made to proceed with the section.: Yes Procedure Performed: Repeat Surgeon: Jamison Camargo MD Anesthesia type: Spinal Description of Procedure/Findings: Male 6lb 110z, footling breech presentation After informed consent, risks and benefits of the procedure was discussed with the patient. The patient was taken to the operating room. Spinal anesthesia was administered. She was placed in the dorsal lithotomy position with leftward tilt. Spinal anesthesia was found to be adequate, she was then prepped and draped in the usual sterile fashion. A Pfannenstiel skin incision was made with a scalpel and carried through to the underlying layer of fascia. The fascia was then nicked in the midline, extending bilaterally. The fascia was dissected off the rectus muscles bluntly and using cautery, superiorly and inferiorly. The rectus muscles were in the midline, and peritoneum was identified and entered bluntly. Large adhesion band from the vesicouterine peritoneum to mid uterus was lysed. The pelvic organs were visualized. The bladder blade was then inserted. The bladder blade was created digitally. The low transverse uterine incision was then made with the scalpel and extended with bilateral index fingers in a crescent-shaped fashion. The feet were presenting. The feet were gently grasped and delivered and the buttocks and arms were delivered. The head was delivered in flex position. The nose and mouth suctioned. The cord was clamped twice and cut. The was then handed off to the awaiting pediatric staff. The placenta was then delivered manually. The uterine cavity was sponge curretted. The uterus was then exteriorized. The uterine incision was then closed with 0 vicryl in a running locked fashion. A second layer of figure of eight interrupted 0 vicryl was used. The area on the mid uterus where the adhesion was lysed was bleeding. Hemostasis obtained with several cautery, several figure of eight sutures of O vicryl and then Surgicil. The uterus was then returned to the abdomen. A figure of eight 0 vicryl was used for hemostasis on the right. Bilateral gutters were cleared off all clots and debris. The uterine incision was noted to be hemostatic. Interceed placed on uterine incision and vertically on front of uterus. The muscle bellies were inspected and noted to be hemostatic. The subfascial layer was noted to be hemostatic, and the fascia was closed with 0 Vicryl in a running fashion. The subcutaneous layer was then closed with 3-0 Vicryl in a subcutaneous fashion. The skin was closed with Ensorb lucille. Dermabond applied at incision. All instruments, needle, and lap counts were correct x3. The patient was taken to the recovery room in stable condition. Estimated Blood Loss: 510 Drains: No Packing: No Pathology: Yes (placenta and cord) Complications: No immediate complications Condition: Stable Disposition: Floor Baby Date of : 09/12/24 Gestational Age by Date: 36 gender: Male Weight (pounds): 6 Weight (ounces): 11 presentation: breech Placenta delivery description: Manual Removal Cord Vessel Description: 3 Vessels and Clamped/Cut score one minute: 8 score five minutes: 9
[2024-09-12] MEDS: MAGNESIUM SULF 4 GM/WATER100ML 4 GM/100 ML BAG IVPB (18:13)
[2024-09-12] MEDS: OXYTOCIN 30 UNITS/NS 500 ML 30 UNITS/500 ML BAG 125 UNITS IV CONT (18:14)
[2024-09-12] MEDS: MORPHINE SULFATE INJ (*CRX) 10 MG/ML AMP (18:26)
[2024-09-12] MEDS: LIDOCAINE 5% PATCH 1 PATCH TRANSDERM (18:34)
[2024-09-12] MEDS: MAGNESIUM SULF 20GM/WATER500ML 500 ML 50 MG IV CONT (18:48)
[2024-09-12] MEDS: MORPHINE SULFATE (*CRX) 2 MG/ML INJ 3 MG IV PUSH (19:00)
--- NOTE | 2024-09-12 19:13 | OBPPTRN ---
Patient transferred to post room #285 via stretcher. Support person present. Oriented to unit, room, information board, rooming in, admission packet and security measures. Patient verbalizes understanding.
[2024-09-12] MEDS: SIMETHICONE 80 MG TAB.CHEW PO (20:20)
[2024-09-12] MEDS: ACETAMINOPHEN 325 MG TABLET 650 MG PO (20:20)
[2024-09-12] MEDS: DOCUSATE SODIUM 100 MG CAPSULE PO (20:20)
[2024-09-12] MEDS: NIFEdipine 30 MG TAB.ER.24 60 MG PO (20:21)
[2024-09-12] MEDS: KETOROLAC 30 MG/ML VIAL (*BKC) 15 MG IV PUSH (20:22)
[2024-09-12] MEDS: KCL 20 MEQ/D5/0.45% SOD CHL 1,000 ML 75 ML IV CONT (22:14)
[2024-09-13] VITALS (8 sets, daily range): BP systolic 83–146; BP diastolic 44–97; PULSE 80–105; RESP 18; TEMP 36.3–37.2; O2SAT 97–100
[2024-09-13] MEDS: ACETAMINOPHEN 325 MG TABLET 650 MG PO ×3 (03:21→19:45)
[2024-09-13] MEDS: KETOROLAC 30 MG/ML VIAL (*BKC) 15 MG IV PUSH ×2 (03:22→14:23)
[2024-09-13] MEDS: DEXTROSE 5%/0.45% SOD CHL 1,000 ML 999 ML (03:43)
[2024-09-13] MEDS: miSOPROStol 200 MCG TABLET 1000 MCG RECTAL (03:53)
[2024-09-13 03:58] LABS: Basophils Percent Auto 0.1 % (0.2-1.2); Eosinophils Absolute Auto 0.1 K/mm3 (0-0.3); Eosinophils Percent Auto 1.2 % (0-4.4); Hematocrit 25.1 % (37.0-47.0); Hemoglobin 8.4 g/dL (12.0-15.0); Immature Granulocyte Absolute 0.01 K/mm3 (0.00-0.031); Immature Granulocyte Percent A 0.1 % (0-0.5); Lymphocytes Absolute Auto 1.18 K/mm3 (0.9-3.2); Lymphocytes Percent Auto 17.6 % (18.3-44.2); Mean Corpuscular HGB Conc 33.5 g/dl (32-36); Mean Corpuscular Hemoglobin 28.8 pg (26-34); Mean Platelet Volume 11.6 fl (7.4-10.4); Monocytes Absolute Auto 0.4 K/mm3 (0.1-0.6); Monocytes Percent Auto 5.8 % (2.6-8.5); Neutrophils Percent Auto 75.2 % (45.5-73.1); Platelet Count Result 181 k/mm3 (150-375); Red Blood Count 2.92 M/mm3 (4.2-5.4); Red Cell Distribution Width 14.1 % (11.5-14.5); White Blood Count 6.7 K/mm3 (4.5-10.0)
--- NOTE | 2024-09-13 03:59 | PC.NURSE ---
Dr. Camargo at bedside, evaluates pt and performs cervical exam. Orders received to hold magnesium, will resume with orders today.
--- NOTE | 2024-09-13 04:16 | P.PNOB_ITS ---
OB - PN: Subj Subjective Date/time seen: 09/13/24 04:16 Interval history: call due to pt with acute bleeding, on kulwinder, and pain and bp 80/40s, she was instructed to stop mag, and given cytotec 1000ug rectally, the kulwinder weighed 35 cc. Her pain resolved. urine output good. fundus firm, minimal bleeding after cytotec. On exam, incision clean and dry, uterus firm at umbilicus, sterile exam, min blood obtained, cervix min dilated, could not sweep lower uterine segment, but no abnormalities palpated or fullness in MCKENZIE. Bp increased 130/70. h/h 8.4/25. She denies headache scotomata or RUQ pain. On exam bowel sounds present, no RUQ swelling or pain. Uterus at umb. bp were elevated prior to this. Will add Hydralazine. OB - PN: Obj Data Labs 09/13/24 03:52 09/12/24 10:44 Labs: Laboratory Results - last 24 hr 09/12/24 09/12/24 09/13/24 10:44 12:42 03:52 WBC 6.2 6.7 RBC 3.81 L 2.92 L Hgb 10.9 L 8.4 L Hct 33.3 L 25.1 L MCV 87.4 86.0 MCH 28.6 28.8 MCHC 32.7 33.5 RDW 14.1 14.1 Plt Count 179 181 MPV 11.2 H 11.6 H Immature Gran % (Auto) 0.2 0.1 Neut % (Auto) 73.6 H 75.2 H Lymph % (Auto) 19.1 17.6 L [place] % (Auto) 5.8 5.8 Eos % (Auto) 1.1 1.2 Baso % (Auto) 0.2 0.1 L Lymph # (Auto) 1.18 1.18 [place] # (Auto) 0.4 0.4 Eos # (Auto) 0.1 0.1 Baso # (Auto) 0.0 0.0 Abs Immat Gran (auto) 0.01 0.01 Absolute Neuts (auto) 4.6 5.0 Absolute Nucleated RBC 0.000 0.000 Nucleated RBC % 0.0 0.0 Sodium 132 L Potassium 3.8 Chloride 105 Carbon Dioxide 24 Anion Gap 3 L BUN 6 L Creatinine 0.70 Estim Creat Clear Calc Not Reportable Estimated GFR > 60 Glucose 94 Uric Acid 6.6 Calcium 9.1 Total Bilirubin 0.5 AST 14 ALT 11 Alkaline Phosphatase 87 Total Protein 7.0 Albumin 3.5 Urine Color Dark yellow Urine Appearance Cloudy H Urine pH 5.5 Ur Specific [place] 1.020 Urine Protein 1+ H Urine Glucose (UA) Negative Urine Ketones Trace H Ur Blood (Man) Negative Urine Nitrate Negative Urine Bilirubin Negative Urine Urobilinogen 1.0 Add Ur Microanalysis Reviewed Leukocyte Esterase Rfl Trace H Urine RBC 0-2 Urine WBC 0-5 Ur Squamous Epith Cells Moderate Urine Bacteria None seen Urine Casts 6-10 Hyaline Casts Present Urine Mucus Present U Random Total Protein 23 Urine Creatinine 370.9 Protein/Creat Ratio 2 0.06 RPR Non-reactive HIV 1&2 Ab/P24 Ag 4thGn Negative Blood Type O Positive Antibody Screen Negative OB - PN A/P Time Spent With Patient Time: Total time spent is greater than 50% in coordination of care (as documented) at patient's floor/unit and/or counseling patient:
--- NOTE | 2024-09-13 08:03 | WPDANLDPN2 ---
Anes-Prog Note L&D Date/Time: 09/13/24 08:03 Comfortable throughout: section Neuraxial method: spinal Epidural/Spinal procedure site: clean & non-tender Neuro status: Neuro function grossly intact. Cardiovascular status: normal Respiratory status: normal Airway patency: baseline Mental status: baseline Post-Op hydration status: normal Vital Signs: Last Vital Signs Temp 37.0 C 09/13/24 03:52 Pulse 80 09/13/24 03:53 Resp 18 09/13/24 03:52 BP 118/69 09/13/24 03:53 Pulse Ox 98 09/13/24 03:53 O2 Del Method Room Air 09/12/24 18:45 Pain score (VAS): 2 I/O: Intake & Output 09/12/24 09/13/24 09/13/24 23:59 07:59 15:59 Intake Total 1575 Output Total 510 1235 Balance -510 340 Post-procedural complaints: none Patient feedback: Patient satisfied with anesthetic care.
--- NOTE | 2024-09-13 08:04 | WPDANLDNPN2 ---
Anes-Prog Note L&D-Neuraxial Date/Time: 09/13/24 08:04 Neuraxial medications: intrathecal PF morphine Opiod-related complaints: none Patient feedback: Patient satisfied with post-operative pain management.
[2024-09-13] MEDS: DOCUSATE SODIUM 100 MG CAPSULE PO ×2 (09:08→18:24)
[2024-09-13] MEDS: POLYSACCHARIDE IRON COMPLEX 150 MG CAPSULE PO ×2 (09:08→18:24)
[2024-09-13] MEDS: SIMETHICONE 80 MG TAB.CHEW PO ×3 (09:08→18:24)
[2024-09-13] MEDS: NIFEdipine 30 MG TAB.ER.24 60 MG PO ×2 (09:09→18:23)
[2024-09-13] MEDS: MULTIVIT/MIN/PREN/FOL AC/IRON TABLET 1 TAB PO (09:09)
[2024-09-13] MEDS: hydrALAZINE 10 MG TABLET PO ×4 (09:10→23:10)
--- NOTE | 2024-09-13 15:18 | P.PNOB_ITS ---
OB - PN: Subj Subjective Date/time seen: 09/13/24 15:18 Interval history: She denies headache, scotomata or RUQ pain. Light lochia. She has not ambulated yet. She denies leg pain or SOB or chest pain. Denies flatus. Patient comments: pain well controlled and tolerating diet OB - PN: Obj Data Labs 09/13/24 03:52 09/12/24 10:44 Labs: Laboratory Results - last 24 hr 09/13/24 03:52 WBC 6.7 RBC 2.92 L Hgb 8.4 L Hct 25.1 L MCV 86.0 MCH 28.8 MCHC 33.5 RDW 14.1 Plt Count 181 MPV 11.6 H Immature Gran % (Auto) 0.1 Neut % (Auto) 75.2 H Lymph % (Auto) 17.6 L [place] % (Auto) 5.8 Eos % (Auto) 1.2 Baso % (Auto) 0.1 L Lymph # (Auto) 1.18 [place] # (Auto) 0.4 Eos # (Auto) 0.1 Baso # (Auto) 0.0 Abs Immat Gran (auto) 0.01 Absolute Neuts (auto) 5.0 Absolute Nucleated RBC 0.000 Nucleated RBC % 0.0 OB - PN A/P Assessment and Plan (1) Delivery by section: Status: Acute Assessment and Plan: POD1. s/p repeat section. She is doing well. Continue routine post op care. (2) Chronic hypertension: Code(s): I10 - Essential (primary) hypertension Status: Acute Assessment and Plan: Blood pressures stable. Continue Procardia and Hydralazine. No signs or symtoms of pre-eclampsia. Continue to manage blood pressures with pharmacotherapy. Time Spent With Patient Time: Total time spent is greater than 50% in coordination of care (as documented) at patient's floor/unit and/or counseling patient: Exam Const: General: comfortable and no acute distress Resp: Effort & Inspection: normal respiratory effort Auscultation: clear to auscultation bilaterally Cardio: Rate: regular rate Rhythm: regular rhythm GI: Other: bowel sounds present, mild distended, fundus at umb, appropriate tender, incision intact, no drainage Neuro: General: oriented to person, oriented to place and oriented to time Extrem: General: no calf tenderness Psych: Mental Status: mental status grossly normal
--- NOTE | 2024-09-13 15:28 | PM.OBDSVD ---
DS: Admitting Diagnosis Admitting Diagnosis Chronic hypertension with severe pressures. DS: Discharge Diagnosis Discharge Diagnosis (1) Delivery by section: Status: Acute (2) Chronic hypertension: Code(s): I10 - Essential (primary) hypertension Status: Acute OB - DS: Summary Hospital Course Hospital Course: She was evaluated on L and D for severe range blood pressures at her office visit. No symptoms of pre- eclampsia. Her blood pressures remained in severe range on L and D and did not respond to medication. PIH labs normal. She had an additional antihypertensive added in the past week. She was recommended for delivery by repeat section for chronic hypertension with severe range blood pressures not responding to medication. position oblique by ultrasound. She has had unstable lie. She agreed with delivery by section. She had a planned repeat section. Her section was uncomplicated. Her antihypertensive medication and Magnesium was started due to severe range pressures. Less than 12 hours after delivery she had an episode of pain and what initially looked like heavy bleeding, it was later weighed and measured,35cc of ebl, and episode of hypotension, the episode resolved with turning off Magnesium and she was given cytotec. Symptoms resolved, Uterus firm. H/H appropriate decrease. Her magnesium remained off. She was continued on prior procardia dose and continued hydralazine. Routine post op care. OB Procedures : NST, PIH Mgmt and Ultrasound OB Procedures Intrapartum: OB Procedures: : None Peripartum Data Delivery Method: Section Procedures: Procedures Operation Date: 09/12/24 15:00 Actual Procedure Side Surgeon p Section Not Applicable Jamison Camargo MD complications: none Status at Discharge Functional status at discharge: independent ambulation Time Spent with Patient Time attestation: Total time spent providing and/or coordinating discharge services: Exam Const: General: cooperative Orientation/consciousness: oriented to person, oriented to place and oriented to time HENMT: Face/Nose/Sinus: Normal external nose present Eyes: General: appearance normal, both eyes and all related structures Resp: Effort & Inspection: normal respiratory effort GI: Inspection: normal to inspection Skin: General skin exam: normal color Neuro: General: oriented to person, oriented to place and oriented to time Extrem: General: normal to inspection and no calf tenderness Psych: Appearance: grossly normal Mental Status: mental status grossly normal DS: Data Data Completed and Pending Pending studies at discharge: Pending at discharge 09/12/24 15:40 Surgical [PTH] Routine Labs on day of discharge: Labs from last 24 hours 09/13/24 03:52 WBC 6.7 RBC 2.92 L Hgb 8.4 L Hct 25.1 L MCV 86.0 MCH 28.8 MCHC 33.5 RDW 14.1 Plt Count 181 MPV 11.6 H Immature Gran % (Auto) 0.1 Neut % (Auto) 75.2 H Lymph % (Auto) 17.6 L [place] % (Auto) 5.8 Eos % (Auto) 1.2 Baso % (Auto) 0.1 L Lymph # (Auto) 1.18 [place] # (Auto) 0.4 Eos # (Auto) 0.1 Baso # (Auto) 0.0 Abs Immat Gran (auto) 0.01 Absolute Neuts (auto) 5.0 Absolute Nucleated RBC 0.000 Nucleated RBC % 0.0 Discharge Plan Discharge Attending physician on discharge: Jamison Camargo Consulting providers: Burton Parada Jr. Activity: no straining, no driving, follow weight bearing status and pelvic rest Diet: low sodium Discharge Medications: No Action levothyroxine 75 mcg capsule 75 mcg PO DAILY Qty: 30 0RF ferrous sulfate 325 mg (65 mg iron) Tablet 325 mg PO DAILY PNV cmb#95-ferrous fumarate-FA [] 28 mg iron- 800 mcg Tablet 1 tablet PO DAILY nifedipine [Procardia XL] 60 mg tablet extended release 24hr 60 mg PO BID aspirin [Children's Aspirin] 81 mg tablet,chewable 81 mg PO DAILY hydralazine 10 mg tablet 10 mg PO .qam and q pm Qty: 60 0RF Date of admission: 09/12/24 11:45 Primary Care Provider: UNKNOWN,DOCTOR Admitting Provider: Jamison Camargo Attending physician on admission: Jamison Camargo
[2024-09-13] MEDS: IBUPROFEN 600 MG TABLET PO (19:44)
[2024-09-13] MEDS: LIDOCAINE 5% PATCH 1 PATCH TRANSDERM (21:22)
[2024-09-13] MEDS: HYDROcodone/acetaminophen (*CRX) 5-325 MG TABLET 1 TAB PO (23:13)
[2024-09-14] MEDS: ACETAMINOPHEN 325 MG TABLET 650 MG PO ×4 (01:35→21:00)
[2024-09-14] MEDS: IBUPROFEN 600 MG TABLET PO ×4 (01:36→21:00)
[2024-09-14 04:07] VITALS: BP 123/69
[2024-09-14 07:30] VITALS: BP 130/78; PULSE 104; RESP 16; TEMP 37; O2SAT 100
[2024-09-14] MEDS: POLYSACCHARIDE IRON COMPLEX 150 MG CAPSULE PO ×2 (07:32→17:41)
[2024-09-14] MEDS: LEVOTHYROXINE SODIUM 75 MCG TABLET PO (07:34)
[2024-09-14] MEDS: SIMETHICONE 80 MG TAB.CHEW PO ×3 (07:34→17:41)
--- NOTE | 2024-09-14 09:10 | PC.NURSE ---
Mother verbalizes she is able to independently latch with appropriate positioning and alignment. She denies any nipple discomfort and is responsively . Nipple shield provided to mother due to maternal request. Reviewed good handwashing, cleaning the nipple shield and the appropriate way to apply and use as a tool. Discussed with mom the nipple shield precautions, possible complications associated with the risks and benefits. Reviewed practicing with a nipple shield, then without and how to protect the milk supply and production. Mother declines any additional assistance or education at this time. Mother is encouraged to call for assistance if her infant doesn?t latch, pain with latching, questions or concerns. Mother voiced understanding of information shared along with the mom/baby guide for an additional resource. Reported to the Primary RN.
--- NOTE | 2024-09-14 09:17 | P.PNOB_ITS ---
OB - PN: Subj Subjective Date/time seen: 09/14/24 09:17 Narrative: POD#2 Rayna reports doing well today. 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 Her pain is controlled. She is tolerating regular diet, voiding, and ambulating without issues. She has not passed gas and feels very bloated; feels things moving and like she needs to, but cannot. She denies any issues with her incision. She denies any headache, scotomata, CP, SOB, or RUQ pain. She is breast feeding. OB - PN: Obj Data Labs 09/13/24 03:52 09/12/24 10:44 OB - PN A/P Assessment and Plan (1) Delivery by section: Status: Acute (2) Hypertension affecting in third trimester: Code(s): O16.3 - Unspecified maternal hypertension, third trimester Status: Acute Plan day: 2 Plan: routine care Comments: - Venofer 400mg IV once for anemia - Awaiting flatus; good bowel sounds heard -- miralax PO; suppository PRN this afternoon if no flatus. - PO pain meds - Regular diet - Ambulation and hydration encouraged + chewing gum - Continue putting baby to breast q2-3hr; discussed that her son will need to gain weight two days in a row before he can be discharged; could go to no care bed after 4 days if needed Time Spent With Patient Time: Total time spent is greater than 50% in coordination of care (as documented) at patient's floor/unit and/or counseling patient: Review of Systems Constitutional: Constitutional: Denies chills, Denies fever(s) and Denies headache(s) Eyes: Eyes: Denies change in vision ENT: Denies dizziness and Denies headache(s) Cardiovascular: Cardiovascular: Denies chest pain, Denies palpitations and Denies dyspnea Respiratory: Respiratory: Denies cough and Denies dyspnea Gastrointestinal: Gastrointestinal: Denies nausea and Denies vomiting Genitourinary: Comments: normal bleeding Neurologic: Denies dizziness and Denies headache(s) Endocrine: Endocrine: Denies palpitations Exam Const: General: cooperative, comfortable and no acute distress Nutritional Appearance: obese Orientation/consciousness: patient oriented x3 Resp: Effort & Inspection: normal respiratory effort Auscultation: clear to auscultation bilaterally Cardio: Rate: regular rate GI: Inspection: distended and incision (covered with clean dressing) GI Palp: Yes abdominal tenderness (appropriate) and Yes Soft to palpation Auscultation: normal bowel sounds : Other: fundus firm Skin: General skin exam: normal color Neuro: General: patient oriented x3 Extrem: General: normal to inspection Psych: Appearance: grossly normal Affect: normal affect Attitude: cooperative
[2024-09-14] MEDS: hydrALAZINE 10 MG TABLET PO ×4 (09:44→21:00)
[2024-09-14] MEDS: DOCUSATE SODIUM 100 MG CAPSULE PO ×2 (09:44→17:41)
[2024-09-14] MEDS: MULTIVIT/MIN/PREN/FOL AC/IRON TABLET 1 TAB PO (09:44)
[2024-09-14] MEDS: NIFEdipine 30 MG TAB.ER.24 60 MG PO ×2 (09:45→17:41)
[2024-09-14 11:25] VITALS: BP 134/78; PULSE 120
[2024-09-14] MEDS: polyethylene glycoL 3350 17 GM POWD.PACK PO (11:26)
[2024-09-14] MEDS: HYDROcodone/acetaminophen (*CRX) 5-325 MG TABLET 1 TAB PO (11:26)
[2024-09-14] MEDS: IRON SUCROSE COMPLEX 400 MG in SODIUM CHLORIDE 0.9% IV 250 ML 108 MG IVPB (11:26)
[2024-09-14 13:20] VITALS: BP 139/89; PULSE 113
[2024-09-14] MEDS: BISACODYL 10 MG SUPPOSITORY RECTAL (14:58)
[2024-09-14 18:50] VITALS: BP 148/90; PULSE 114; RESP 18; TEMP 36.8; O2SAT 98
[2024-09-14 21:00] VITALS: BP 136/89; PULSE 105
[2024-09-14] MEDS: LIDOCAINE 5% PATCH 1 PATCH TRANSDERM (21:00)
[2024-09-15] VITALS (7 sets, daily range): BP systolic 130–146; BP diastolic 76–92; PULSE 110–125; RESP 16–20; TEMP 36.1–36.7
[2024-09-15] MEDS: SIMETHICONE 80 MG TAB.CHEW PO ×3 (04:20→16:42)
[2024-09-15] MEDS: IBUPROFEN 600 MG TABLET PO ×4 (04:20→22:40)
[2024-09-15] MEDS: ACETAMINOPHEN 325 MG TABLET 650 MG PO ×4 (04:20→22:40)
[2024-09-15] MEDS: POLYSACCHARIDE IRON COMPLEX 150 MG CAPSULE PO ×2 (07:20→16:42)
[2024-09-15] MEDS: NIFEdipine 30 MG TAB.ER.24 60 MG PO ×2 (07:20→16:41)
[2024-09-15] MEDS: MULTIVIT/MIN/PREN/FOL AC/IRON TABLET 1 TAB PO (07:20)
[2024-09-15] MEDS: LEVOTHYROXINE SODIUM 75 MCG TABLET PO (07:20)
[2024-09-15] MEDS: DOCUSATE SODIUM 100 MG CAPSULE PO ×2 (07:20→16:42)
[2024-09-15] MEDS: hydrALAZINE 10 MG TABLET PO ×4 (07:20→21:00)
--- NOTE | 2024-09-15 08:59 | P.PNOB_ITS ---
OB - PN: Subj Subjective Date/time seen: 09/15/24 08:59 Interval history: POD#3 Rayna reports doing better today, just very tired as she hasn't gotten much sleep-- thinks that's why her BPs have been slightly elevated. 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 Her pain is controlled. She is tolerating regular diet, voiding (a lot), and ambulating without issues. She finally passed gas and is feeling much better. She denies any issues with her incision. She denies any headache, scotomata, CP, SOB, or RUQ pain. She is breast feeding, her mild has come in. OB - PN: Obj Data Labs 09/13/24 03:52 09/12/24 10:44 Labs: UOP over 24 hrs: 4450ml (balance of - 3400ml) OB - PN A/P Assessment and Plan (1) delivery delivered: Code(s): O82 - Encounter for delivery without indication Status: Acute Plan day: 3 Plan: routine care Comments: - s/p Venofer 400mg IV once for anemia - Normal bowel function - continue nifedipine 60mg BID + hydralazine 10 QID, if BPs still elevated, may try low dose oral lasix to help with swelling - PO pain meds - Regular diet - Ambulation and hydration encouraged - Continue putting baby to breast q2-3hr; discussed that her son will need to gain weight two days in a row before he can be discharged; could go to no care bed after 4 days if needed Time Spent With Patient Time: Total time spent is greater than 50% in coordination of care (as documented) at patient's floor/unit and/or counseling patient: Review of Systems Constitutional: Constitutional: Denies chills, Denies fever(s) and Denies headache(s) Eyes: Eyes: Denies change in vision ENT: Denies dizziness and Denies headache(s) Cardiovascular: Cardiovascular: Denies chest pain, Denies palpitations and Denies dyspnea Respiratory: Respiratory: Denies cough and Denies dyspnea Gastrointestinal: Gastrointestinal: Denies nausea and Denies vomiting Genitourinary: Comments: normal bleeding Neurologic: Denies dizziness and Denies headache(s) Endocrine: Endocrine: Denies palpitations Exam Const: General: cooperative, comfortable and no acute distress Nutritional Appearance: obese Orientation/consciousness: patient oriented x3 Resp: Effort & Inspection: normal respiratory effort Auscultation: clear to auscultation bilaterally Cardio: Rate: regular rate GI: Inspection: non-distended and incision (covered with clean dressing) GI Palp: Yes abdominal tenderness (appropriate) and Yes Soft to palpation Auscultation: normal bowel sounds : Other: fundus firm Skin: General skin exam: normal color Neuro: General: patient oriented x3 Extrem: Other: +1 pitting edema Psych: Appearance: grossly normal Affect: normal affect Attitude: cooperative
[2024-09-15] MEDS: LIDOCAINE 5% PATCH 1 PATCH TRANSDERM (21:00)
[2024-09-16] VITALS (7 sets, daily range): BP systolic 138–154; BP diastolic 87–108; PULSE 103–113; RESP 16–20; TEMP 36.1–36.9; O2SAT 100
[2024-09-16] MEDS: ACETAMINOPHEN 325 MG TABLET 650 MG PO ×4 (04:40→23:30)
[2024-09-16] MEDS: IBUPROFEN 600 MG TABLET PO ×4 (04:40→23:30)
[2024-09-16] MEDS: LEVOTHYROXINE SODIUM 75 MCG TABLET PO (06:48)
[2024-09-16] MEDS: MULTIVIT/MIN/PREN/FOL AC/IRON TABLET 1 TAB PO (08:57)
[2024-09-16] MEDS: SIMETHICONE 80 MG TAB.CHEW PO ×3 (08:57→16:30)
[2024-09-16] MEDS: DOCUSATE SODIUM 100 MG CAPSULE PO ×2 (08:57→16:30)
[2024-09-16] MEDS: POLYSACCHARIDE IRON COMPLEX 150 MG CAPSULE PO ×2 (08:58→16:31)
[2024-09-16] MEDS: NIFEdipine 30 MG TAB.ER.24 60 MG PO ×2 (08:58→21:00)
[2024-09-16] MEDS: hydroCHLOROthiazide 25 MG TABLET PO (08:59)
[2024-09-16] MEDS: TETANUS,DIPHTHERIA,AC PERTUSSIS ADULT (0.5 ML) BOOSTRIX IM (09:05)
--- NOTE | 2024-09-16 12:51 | PC.NURSE ---
1245. Mother verbalizes she is able to independently latch infant with appropriate positioning and alignment. She denies any nipple discomfort and is responsively . is currently meeting outcomes for weight, output, jaundice, blood sugar and feeding frequencies of 8-12 times in 24 hours. Mother declines any additional assistance or education at this time. Mother is encouraged to call for assistance if her doesn?t latch, pain with latching, questions or concerns. Mother voiced understanding of information shared along with the mom/baby guide for an additional resource. Milk storage guidelines handout provided and lanolin provided per moms request.
--- NOTE | 2024-09-16 14:45 | PM.OBPNVD ---
OB - PN: Subj Subjective Date/time seen: 09/16/24 12:00 Interval history: POD#4 She is doing well. Up ad edouard. Showered this morning. Denies pain. Reports that bleeding is minimial. Incision CDI. She has had a BM and passing gas. She denies headache, scotomata, CP, SOB, and RUQ pain. Swelling has decreased some. She would like to discontinue the hydralazine. She thinks it is making her heart rate increased. Baby is not being discharge. Discussed no care bed. Patient comments: no complaints, pain well controlled, tolerating diet and flatus present Lowgap baby status: doing well OB - PN: Obj Data Labs 09/13/24 03:52 09/12/24 10:44 OB - PN A/P Assessment and Plan (1) delivery delivered: Code(s): O82 - Encounter for delivery without indication Status: Acute Assessment and Plan: Discussed with Dr. Camargo. POD4 and doing well. Okay to be discharged to no care bed. Will continue procardia XL BID. Will discontinue hydralazine. Will initiate HCTZ 25mg daily for 10 days. Hospital follow up scheduled for tomorrow. Follow up in office in one week. Reviewed ER precautions in detail with Rayna. Time Spent With Patient Time: Total time spent is greater than 50% in coordination of care (as documented) at patient's floor/unit and/or counseling patient: Review of Systems Review of Systems: All systems reviewed & are unremarkable except as noted in HPI and below Constitutional: Constitutional: Denies chills and Denies fever(s) Cardiovascular: Cardiovascular: Denies chest pain Respiratory: Respiratory: Denies dyspnea Gastrointestinal: Gastrointestinal: Denies abdominal pain Genitourinary: Genitourinary: Denies abnormal vaginal bleeding Neurologic: Denies headache(s) and Denies Other visual disturbances Psychiatric: Psychiatric: Denies no additional psychiatric complaints Exam Const: General: cooperative Orientation/consciousness: patient oriented x3 Resp: Effort & Inspection: normal respiratory effort and able to speak in complete sentences Auscultation: clear to auscultation bilaterally Cardio: Rate: regular rate Rhythm: regular rhythm GI: Inspection: normal to inspection GI Palp: No abdominal tenderness, Yes Soft to palpation and No Tenderness to palpation present (GI) Auscultation: normal bowel sounds : Other: pad with scant rubra lochia Skin: General skin exam: normal color Other: incision CDI Neuro: General: patient oriented x3 Extrem: General: normal to inspection, full ROM and capillary refill normal Right lower extremity: normal to inspection and edema Details: non-pitting and 1+ Left lower extremity: normal to inspection and edema Details: non-pitting and 1+ Other: no calf tenderness Psych: Appearance: grossly normal Mental Status: mental status grossly normal Affect: normal affect Attitude: cooperative
[2024-09-16] MEDS: hydrALAZINE 10 MG TABLET PO ×2 (17:40→23:30)
[2024-09-16] MEDS: HYDROcodone/acetaminophen (*CRX) 5-325 MG TABLET 1 TAB PO (21:30)
[2024-09-17] MEDS: hydrALAZINE 10 MG TABLET PO (05:16)
[2024-09-17] MEDS: ACETAMINOPHEN 325 MG TABLET 650 MG PO (05:16)
[2024-09-17] MEDS: IBUPROFEN 600 MG TABLET PO (05:16)
[2024-09-17 05:50] VITALS: BP 157/112
[2024-09-17] MEDS: NIFEdipine 10 MG CAPSULE PO (05:57)
[2024-09-17 06:29] LABS: Alanine Aminotransferase 21 U/L (6-35); Albumin Level 3.6 g/dL (3.5-5.1); Alkaline Phosphatase 72 U/L (38-126); Anion Gap 8 mmol/L (4-12); Aspartate Amino Transferase 23 U/L (14-36); Blood Urea Nitrogen 7 mg/dL (7-17); Calcium 8.9 mg/dL (8.4-10.2); Carbon Dioxide 28 mmol/L (22-30); Chloride 102 mmol/L (98-107); Estimated CRCL calculation 141 ml/min; Estimated Glomerular Filt Rate > 60; Glucose 103 mg/dL (65-110); Potassium 3.2 mmol/L (3.4-5.0); Sodium 138 mmol/L (137-145)
[2024-09-17 06:39] LABS: Uric Acid 6.6 mg/dL (2.5-7.5)
[2024-09-17 06:40] VITALS: BP 146/83; PULSE 118; RESP 16; TEMP 36.1; O2SAT 100
[2024-09-17] MEDS: SIMETHICONE 80 MG TAB.CHEW PO (08:33)
[2024-09-17] MEDS: LEVOTHYROXINE SODIUM 75 MCG TABLET PO (08:34)
[2024-09-17] MEDS: POLYSACCHARIDE IRON COMPLEX 150 MG CAPSULE PO (08:34)
[2024-09-17] MEDS: hydroCHLOROthiazide 25 MG TABLET PO (08:34)
[2024-09-17] MEDS: DOCUSATE SODIUM 100 MG CAPSULE PO (08:34)
[2024-09-17] MEDS: MULTIVIT/MIN/PREN/FOL AC/IRON TABLET 1 TAB PO (08:35)
[2024-09-17] MEDS: NIFEdipine 30 MG TAB.ER.24 60 MG PO (08:35)
[2024-09-17] MEDS: polyethylene glycoL 3350 17 GM POWD.PACK PO (08:39)
--- NOTE | 2024-09-17 09:00 | PC.NURSE ---
Consulted with mother concerning needs and she shared her ability to independently latch infant optimally without pain. Mother is feeding appropriately for growth of and understands stimulating to eat if needed. Pumping has also been initiated and mother is confident with pumping and feeding. Infant has had appropriate feedings in the last 24 hours is now meeting the outcomes for weight, output, blood sugar and jaundice at this time. Reinforced understanding of milk production, transition of milk, signs of adequate intake, transition of stool, prevention/relief of engorgement, plugged ducts, mastitis, responsive watching for feeding cues, the different methods of stimulating to breastfeed 1-3 hours after the start of the last feeding, community resources, and when to call a provider using the resource of the feeding sheet along with the mom and baby guide. Mother voiced understanding of the information shared, is confident to continue effectively her at home, when to call for assistance, denies any additional assistance or education at this time. Reported to the Primary RN.
[2024-09-17 10:02] LABS: Basophils Percent Auto 0.1 % (0.2-1.2); Eosinophils Absolute Auto 0.3 K/mm3 (0-0.3); Eosinophils Percent Auto 4.4 % (0-4.4); Hematocrit 24.3 % (37.0-47.0); Hemoglobin 7.9 g/dL (12.0-15.0); Immature Granulocyte Absolute 0.07 K/mm3 (0.00-0.031); Lymphocytes Percent Auto 17.2 % (18.3-44.2); Mean Corpuscular HGB Conc 32.5 g/dl (32-36); Mean Corpuscular Hemoglobin 28.5 pg (26-34); Mean Corpuscular Volume 87.7 fl (80-100); Mean Platelet Volume 10.4 fl (7.4-10.4); Monocytes Absolute Auto 0.4 K/mm3 (0.1-0.6); Monocytes Percent Auto 5.2 % (2.6-8.5); Neutrophils Percent Auto 72.1 % (45.5-73.1); Nucleated Red Blood Cells Perc 0.6 % (0.0-0.2); Platelet Count Result 235 k/mm3 (150-375); Red Blood Count 2.77 M/mm3 (4.2-5.4); Red Cell Distribution Width 14.4 % (11.5-14.5)
[2024-09-18 08:52] VITALS: BP 146/91; PULSE 113; RESP 18; TEMP 36.9; O2SAT 100
== END 2024-09-17 11:45 | disposition home or self-care (01) | DRG 787 ==
LOC: ANHOBOP 11:54 → ANHOBPP 11:54 → ANHOB2 19:38
PROVIDERS: Admitting Provider Obstetrics & Gynecology; Visit Provider Obstetrics & Gynecology
PROC: 10D00Z1 Extraction of Products of Conception, Low, Open Approach (ICD-10-PCS; CPT 59514; principal; 2024-09-12 15:00)
DX: O34.219 Maternal care for unspecified type scar from previous cesarean delivery (principal); O10.92 Unspecified pre-existing hypertension complicating childbirth; O72.2 Delayed and secondary postpartum hemorrhage; O99.02 Anemia complicating childbirth; D64.9 Anemia, unspecified; O99.284 Endocrine, nutritional and metabolic diseases complicating childbirth; O99.214 Obesity complicating childbirth; O32.1XX0 Maternal care for breech presentation, not applicable or unspecified; O99.824 Streptococcus B carrier state complicating childbirth; E03.9 Hypothyroidism, unspecified; E66.01 Morbid (severe) obesity due to excess calories; N73.6 Female pelvic peritoneal adhesions (postinfective); Z3A.35 35 weeks gestation of pregnancy; Z37.0 Single live birth
CPT/HCPCS: 36415; 80053; 81001; 82570; 84156; 84550; 85025; 86592; 86703; 86850; 86900; 86901; 88307; 90715; A9270; G0432; J0690; J1885; J2270; J2274; J2371; J2405; J2590; J3475; J3480; J7050; J7120